=== PATIENT | female | born 1995 | race African-American/Black ===

== ENCOUNTER 2020-02-01 19:57 | Emergency (ER) | payer OTHER, BC, SELFPAY ==
--- NOTE | ~2020-02-01 | XR_ITS ---
EXAMINATION: XR chest 2V EXAM DATE: 02/01/2020 20:55 INDICATION: Mid chest pain, chest tightness. History of heart murmur. TECHNIQUE: Frontal and lateral projections of the chest obtained and reviewed. Comparison is made to prior examination from 01/13/2020. FINDINGS: The lungs are clear. There are no pleural effusions. The cardiomediastinal silhouette is within normal limits. There is no pneumothorax suspected. The bones and soft tissues are unremarkab le. IMPRESSION: Normal chest x-ray exam. Reviewed, dictated and finalized at location A. IMPRESSION: Normal chest x-ray exam.
[2020-02-01 20:16] VITALS: BP 147/68; PULSE 68; RESP 20; TEMP 36.4; O2SAT 100
--- NOTE | 2020-02-01 20:19 | ECG_ITS ---
Measurements Intervals [place] Rate: 60 P: 74 IA: 189 QRS: 63 QRSD: 96 T: 55 QT: 394 QTc: 396 Interpretive Statements SINUS RHYTHM WITH SINUS ARRHYTHMIA BASELINE ARTIFACT- I, AVL NORMAL ECG Electronically Signed On 02-02-2020 6:53:08 CDT by Anirudh Fontana D.O.
[2020-02-01 20:52] LABS: Basophils Absolute Auto 0.1 K/mm3 (0.0-0.1); Basophils Percent Auto 1.1 % (0.2-1.2); Eosinophils Absolute Auto 0.1 K/mm3 (0-0.3); Eosinophils Percent Auto 0.9 % (0-4.4); Hemoglobin 12.8 g/dL (12.0-15.0); Immature Granulocyte Absolute 0.02 K/mm3 (0.00-0.031); Immature Granulocyte Percent A 0.3 % (0-0.5); Immature Platelet Fraction Pct 22.1 % (0.9-11.2); Lymphocytes Absolute Auto 2.52 K/mm3 (0.9-3.2); Lymphocytes Percent Auto 33.7 % (18.3-44.2); Mean Corpuscular HGB Conc 33.7 g/dl (32-36); Mean Corpuscular Hemoglobin 29.6 pg (26-34); Mean Corpuscular Volume 87.8 fl (80-100); Mean Platelet Volume 13.8 fl (7.4-10.4); Monocytes Absolute Auto 0.6 K/mm3 (0.1-0.6); Monocytes Percent Auto 8.6 % (2.6-8.5); Neutrophils Absolute Auto 4.1 K/mm3 (1.3-6.7); Neutrophils Percent Auto 55.4 % (45.5-73.1); Platelet Count Result 162 k/mm3 (150-375); Red Blood Count 4.33 M/mm3 (4.2-5.4); Red Cell Distribution Width 12.9 % (11.5-14.5); White Blood Count 7.5 K/mm3 (4.5-10.0)
[2020-02-01 21:00] LABS: Prothrombin Time 12.7 Seconds (11.1-14.7)
[2020-02-01 21:01] LABS: Partial Thromboplastin Time 29.4 SECONDS (22.3-36.8)
[2020-02-01 21:17] VITALS: BP 146/84; PULSE 61; RESP 18; O2SAT 99
[2020-02-01 21:22] LABS: Anion Gap 8 mmol/L (8-16); Blood Urea Nitrogen 14 mg/dL (7-17); Calcium 9.2 mg/dL (8.4-10.2); Carbon Dioxide 26 mmol/L (22-30); Chloride 105 mmol/L (98-107); Estimated CRCL calculation 109 ml/min; Estimated Glomerular Filt Rate > 60; Glucose 113 mg/dL (65-105); Potassium 3.9 mmol/L (3.4-5.0); Sodium 139 mmol/L (137-145)
[2020-02-01] MEDS: ASPIRIN 81 MG CHEWABLE TABLET 324 MG PO (21:24)
--- NOTE | 2020-02-01 21:28 | ED.GENADULT ---
HPI - General Adult General Chief complaint: Chest Pain Stated complaint: wants chest x ray Time Seen by Provider: 02/01/20 21:11 Source: patient History of Present Illness HPI narrative: Patient is a 24 y/o female complaining of intermittent chest pain for several months. She state that her current episode of pain started about 10:30 AM this morning. Her pain is located on left side of chest with no radiation. She describes chest pain as a pressure and rates it as 6-7/10. There is no alleviating or exacerbating factor. She has intermittent SOB with exertion, but no SOB at this time. She is no fever or cough. Related Data Home Medications Medication Instructions Recorded Confirmed No Home Medications 02/01/20 02/01/20 Allergies Allergy/AdvReac Type Severity Reaction Status Date / Time No Known Allergies Allergy Unverified 03/28/17 15:27 Review of Systems Constitutional: Constitutional: Denies chills, Denies fever(s), Denies headache(s) and Denies weakness Eyes: Eyes: Denies blurry vision ENT: Denies headache(s) and Denies neck pain Cardiovascular: Cardiovascular: Denies chest pain and Denies dyspnea Respiratory: Respiratory: Denies cough and Denies dyspnea Gastrointestinal: Gastrointestinal: Denies abdominal pain, Denies diarrhea, Denies nausea and Denies vomiting Genitourinary: Genitourinary: Denies hematuria and Denies dysuria Musculoskeletal: Musculoskeletal: Denies back pain and Denies neck pain Neurologic: Denies headache(s) and Denies weakness Exam Const: General: no acute distress and well developed Orientation/consciousness: oriented to person, oriented to place, oriented to time and patient oriented x3 HENMT: Head: normocephalic Ears: external ears normal General nose exam: Normal external nose present Eyes: General: appearance normal, both eyes and all related structures Conjunctivae: conjunctivae normal Neck: Neck: normal visual inspection and full ROM Chest: Chest palpation & inspection: normal inspection of the chest and no tenderness Resp: Effort & Inspection: normal respiratory effort Auscultation: clear to auscultation bilaterally Cardio: Rate: regular rate Rhythm: regular rhythm GI: GI Palp: No abdominal tenderness and Yes Soft to palpation Skin: General skin exam: normal color and turgor normal Neuro: General: oriented to person, oriented to place, oriented to time and patient oriented x3 Cognition (Neuro): normal cognition Extrem: General: normal to inspection, full ROM and no pedal edema Psych: Appearance: grossly normal Mental Status: mental status grossly normal Affect: normal affect Course Vital Signs Vital signs: Vital Signs Temperature 36.4 C L 02/01/20 20:16 Pulse Rate 68 02/01/20 20:16 Respiratory Rate 20 02/01/20 20:16 Blood Pressure 147/68 H 02/01/20 20:16 Pulse Oximetry 100 02/01/20 20:16 Temperature 36.4 C L 02/01/20 20:16 Pulse Rate 79 02/01/20 23:52 Respiratory Rate 16 02/01/20 23:52 Blood Pressure 175/88 H 02/01/20 23:52 Pulse Oximetry 97 02/01/20 23:52 Medical Decision Making Vital Signs Vital Signs: Vital Signs Temperature 36.4 C L 02/01/20 20:16 Pulse Rate 68 02/01/20 20:16 Respiratory Rate 20 02/01/20 20:16 Blood Pressure 147/68 H 02/01/20 20:16 Pulse Oximetry 100 02/01/20 20:16 Temperature 36.4 C L 02/01/20 20:16 Pulse Rate 79 02/01/20 23:52 Respiratory Rate 16 02/01/20 23:52 Blood Pressure 175/88 H 02/01/20 23:52 Pulse Oximetry 97 02/01/20 23:52 Lab Data Result diagrams: 02/01/20 20:24 02/01/20 20:24 Labs: Lab Results 02/01/20 02/01/20 02/01/20 Range/Units 20:24 20:24 20:24 WBC 7.5 (4.5-10.0) K/mm3 RBC 4.33 (4.2-5.4) M/mm3 Hgb 12.8 (12.0-15.0) g/dL Hct 38.0 (37.0-47.0) % MCV 87.8 (80-100) fl MCH 29.6 (26-34) pg MCHC 33.7 (32-36) g/dl RDW 12.9 (11.5-14.5) % Plt Count 162 (150-3
[2020-02-01 21:34] LABS: Troponin I < 0.012 ng/mL (0.000-0.034)
[2020-02-01 22:03] LABS: D Dimer 0.27 ug/mL (<0.48)
[2020-02-01 22:58] VITALS: BP 138/80; PULSE 58; RESP 18; O2SAT 99
[2020-02-01 23:52] VITALS: BP 175/88; PULSE 79; RESP 16; O2SAT 97
[2020-02-01 23:59] LABS: Troponin I < 0.012 ng/mL (0.000-0.034)
== END 2020-02-02 00:51 | disposition home or self-care (01) ==
PROVIDERS: General Practice; Emergency Provider Emergency Medicine
DX: R07.9 Chest pain, unspecified (principal)
CPT/HCPCS: 36415; 71046; 80048; 84484; 85025; 85055; 85380; 85610; 85730; 93005; 99284; A9270